=== PATIENT | male | born 1955 | race Caucasian/White ===

== ENCOUNTER 2016-11-18 13:18 | Emergency (ER) | payer OTHER ==
[2016-11-18 14:36] LABS: BASOPHIL 0.7 % (0-2); EOSINOPHIL 0 % (0-5); HGB 16.4 g/dl (13.2-18.0); LYMPHOCYTE 19.7 % (15-48); MCH 33.3 pg (25.0-31.0); MCHC 35.7 g/dL (32.0-36.0); MCV 93.3 fL (78.0-100.0); MONOCYTE 16.6 % (0-12); PLT 114 K/uL (150-400); RBC 4.93 M/uL (4.70-6.00); RDW 15.2 % (11.5-14.0); WBC 5.4 K/uL (4.0-10.5)
[2016-11-18 14:45] LABS: ALBUMIN 3.6 g/dL (3.5-5.0); BILIRUBIN - TOTAL 0.5 mg/dL (0.1-1.0); CREATININE 0.8 mg/dL (0.7-1.2); GLOBULIN (CALCULATION) 3.8 g/dL (2.2-4.2); POTASSIUM 4.1 mmol/L (3.5-5.1); TOTAL PROTEIN 7.4 g/dL (6.4-8.3)
== END 2016-11-18 16:16 | disposition home or self-care (01) ==
LOC: FER 13:18
PROVIDERS: Internal Medicine
DX: R05 Cough (principal); R50.9 Fever, unspecified; R11.2 Nausea with vomiting, unspecified; F17.210 Nicotine dependence, cigarettes, uncomplicated
CPT/HCPCS: 36415; 71020; 80053; 82150; 83690; 85025; 94640

== ENCOUNTER 2016-11-22 10:12 | Emergency (ER) | payer OTHER ==
[2016-11-22 11:16] LABS: BASOPHIL 0.6 % (0-2); EOSINOPHIL 0 % (0-5); HCT 48.2 % (42.0-52.0); HGB 17.4 g/dl (13.2-18.0); LYMPHOCYTE 22.4 % (15-48); MCH 32.9 pg (25.0-31.0); MCHC 36.1 g/dL (32.0-36.0); MCV 91.1 fL (78.0-100.0); MONOCYTE 14.7 % (0-12); MPV 10.9 fL (6.0-9.5); NEUTROPHIL 62.3 % (41-80); PLT 120 K/uL (150-400); RBC 5.29 M/uL (4.70-6.00); RDW 14.8 % (11.5-14.0)
[2016-11-22 11:44] LABS: ACETAMINOPHEN (TYLENOL) < 5.0 ug/mL (10.0-30.0); ALCOHOL (ETOH) MEDICAL 75 mg/dL; SALICYLATE < 6 ug/mL (0-300)
[2016-11-22 11:45] LABS: ALBUMIN 3.8 g/dL (3.5-5.0); BILIRUBIN - TOTAL 0.9 mg/dL (0.1-1.0); CREATININE 1.4 mg/dL (0.7-1.2); GLOBULIN (CALCULATION) 4.2 g/dL (2.2-4.2); POTASSIUM 3.6 mmol/L (3.5-5.1)
[2016-11-22 13:39] LABS: BILIRUBIN NEGATIVE (NEGATIVE); BLOOD 1+ Ery/uL (NEGATIVE); CLARITY CLEAR (CLEAR); COLOR YELLOW (YELLOW); GLUCOSE (U) NORMAL (NORMAL); KETONE (U) NEGATIVE (NEGATIVE); LEUKOCYTES NEGATIVE Leu/uL (NEGATIVE); NITRITE NEGATIVE (NEGATIVE); PROTEIN 2+ mg/dL (NEGATIVE); UROBILINOGEN 0.2 mg/dL (0.2-1.0); pH 6.5 (5.0-9.0)
[2016-11-22 13:52] LABS: BACTERIA 2+; SQUAMOUS EPITHELIAL CELLS 20-50
[2016-11-22 13:58] LABS: AMPHETAMINES NEGATIVE (NEGATIVE); BENZODIAZEPINES NEGATIVE (NEGATIVE); COCAINE NEGATIVE (NEGATIVE)
[2016-11-22 13:59] LABS: BARBITURATES NEGATIVE (NEGATIVE); MARIJUANA (THC) NEGATIVE (NEGATIVE); METHADONE POSITIVE (NEGATIVE); TRICYCLIC ANTIDEPRESSANT NEGATIVE (NEGATIVE)
== END 2016-11-22 14:37 | disposition home or self-care (01) ==
LOC: FER 10:12
PROVIDERS: Internal Medicine
DX: S20.212A Contusion of left front wall of thorax, initial encounter (principal); K85.90 Acute pancreatitis without necrosis or infection, unspecified; K52.9 Noninfective gastroenteritis and colitis, unspecified; F17.200 Nicotine dependence, unspecified, uncomplicated
CPT/HCPCS: 36415; 71010; 71100; 80053; 80305; 81001; 82150; 83690; 84484; 85025; 93005; G0480; J1170; J2405; J3411; J3475